=== PATIENT | male | born 1985 | race Caucasian/White ===

== ENCOUNTER 2019-02-20 09:28 | Emergency (ER) | payer BC ==
[2019-02-20 09:33] VITALS: BP 150/91; PULSE 78; RESP 18; TEMP 98.1
[2019-02-20] MEDS ORDERED: DIAZEPAM 5 MG/ML 2 ML INJ IM STA (09:55)
[2019-02-20] MEDS ORDERED: KETOROLAC 60 MG/2 ML VIAL IM STA (09:55)
--- NOTE | 2019-02-20 09:58 | ED ---
Back Pain HPI - General Chief Complaint: Back Pain/Injury Stated Complaint: LOWER BACK LEFT SIDE PAIN Time Seen by Provider: 02/20/19 09:49 Source: patient, RN notes reviewed Limitations: no limitations - History of Present Illness Initial Comments: 33-year-old male presents emergency Department chief complaint of low back pain and left side. Patient states that he was jumping on trampoline and states that he felt a pull a muscle. Patient states that it worsened overnight time. Patient states he has no bowel bladder incontinence or retention or saddle anesthesias or lower extremity symptoms including paresthesias or pain. Patient states that he just feels very stiff. Patient states that he has no fevers or chills chest pain or shortness of breath. He has no abdominal complaints. Try taking family members pain meds with minimal relief. - Related Data Previous Rx's Medication Instructions Recorded Cyclobenzaprine [Flexeril] 10 mg PO TID PRN #15 tab 02/20/19 Hydrocodone/Acetaminophen [[place] 1 tab PO Q6HR PRN #12 tab 02/20/19 5-325] Ibuprofen [Motrin] 600 mg PO Q8HR PRN #30 tab 02/20/19 Allergies Allergy/AdvReac Type Severity Reaction Status Date / Time Penicillins AdvReac Diarrhea Verified 02/20/19 09:49 Review of Systems ROS Statement: Those systems with pertinent positive or pertinent negative responses have been documented in the HPI. ROS Other: All systems not noted in ROS Statement are negative. Past Medical History Past Medical History: No Reported History History of Any Multi-Drug Resistant Organisms: None Reported Past Surgical History: No Surgical Hx Reported Past Psychological History: No Psychological Hx Reported Smoking Status: Former smoker Past Alcohol Use History: None Reported Past Drug Use History: None Reported General Exam Limitations: no limitations General appearance: alert, in no apparent distress Head exam: Present: atraumatic, normocephalic, normal inspection Neck exam: Present: normal inspection, full ROM. Absent: tenderness, meningismus, lymphadenopathy Respiratory exam: Present: normal lung sounds bilaterally. Absent: respiratory distress, wheezes, rales, rhonchi, stridor Cardiovascular Exam: Present: regular rate, normal rhythm, normal heart sounds. Absent: systolic murmur, diastolic murmur, rubs, gallop, clicks GI/Abdominal exam: Present: soft, normal bowel sounds. Absent: distended, tenderness, guarding, rebound, rigid Extremities exam: Present: other (Lower extremity strength equal bilaterally neurovascular intact equal color equal warmth) Back exam: Present: tenderness, muscle spasm, paraspinal tenderness. Absent: full ROM (Decreased range of motion secondary to pain), vertebral tenderness Neurological exam: Present: alert, oriented X3, CN II-XII intact, reflexes normal. Absent: motor sensory deficit Skin exam: Present: warm, dry, intact, normal color. Absent: rash Course Vital Signs 02/20/19 09:30 Temperature 98.1 F Pulse Rate 78 Respiratory 18 Rate Blood Pressure 150/91 O2 Sat by Pulse 99 Oximetry Medical Decision Making - Medical Decision Making 33-year-old male presented for low back pain. Patient has a lumbar strain. He has no red flag symptoms. Patient will be discharged at this time. Patient given Toradol and Valium emergency department he was instructed he cannot operate machinery taking pain medications or muscle relaxers. A she'll follow- up with Dr. Gardner no improvement. Disposition Clinical Impression: Strain of lumbar region Disposition: HOME SELF-CARE Condition: Stable Instructions (If sedation given, give patient instructions): Acute Low Back Pain (ED) Additional Instructions: Please return to the Emergency Department if symptoms worsen or any other concerns. Prescriptions: Cyclobenzaprine [Flexeril] 10 mg PO TID PRN #15 tab PRN Reason: Muscle Spasm Ibuprofen [Motrin] 600 mg PO Q8HR PRN #30 tab PRN Reason: Pain Hydrocodone/Acetaminophen [[place] 5-325] 1 tab PO Q6HR PRN #12 tab PRN Reason: Pain Is patient prescribed a controlled substance at d/c from ED?: Yes When asked, does pt state using other controlled substances?: No If prescribed controlled substance>3 days was MAPS reviewed?: Prescribed <3 Days If opioid is for acute pain is fill amount 7 days or less?: Yes If Rx opioid, was Start Talking consent form obtained?: Yes Referrals: None,Stated [Primary Care Provider] - 1-2 days Sariah Bradley DO [Doctor of Osteopathic Medicine] - 1-2 days Time of Disposition: 09:58
== END 2019-02-20 10:06 | disposition home or self-care (01) ==
LOC: EC 09:28
DX: S39.012A Strain of muscle, fascia and tendon of lower back, initial encounter (principal); Z87.891 Personal history of nicotine dependence; Z88.0 Allergy status to penicillin; X58.XXXA Exposure to other specified factors, initial encounter; Y93.44 Activity, trampolining
CPT/HCPCS: 99283; 96372 ×2; J3360; J1885